=== PATIENT | female | born 1995 | race Caucasian/White ===

== ENCOUNTER 2018-08-16 20:23 | Emergency (ER) | payer OTHER ==
[2018-08-16] MEDS ORDERED: Sodium Chloride 0.9% 1,000 ML IV ONE (20:55)
[2018-08-16] MEDS ORDERED: Iohexol 240 (50 ml) PO STA (20:55)
--- NOTE | 2018-08-16 20:55 | C.PDOC ---
History Of Present Illness 22 y/o female presents to the ED complaining of epigastric pain for 3 days. Pain is described as waxing/waning, localized, dull, described as a heavy feeling. Patient states she is getting over recent URI, was coughing a lot, and initially attributed pain to the coughing. Cough has now resolved, however abdominal pain persists. No association with position. Patient also complains of nausea, no vomiting or diarrhea. Has not had BM in 2 days. LMP was 08/05. Also reports having decreased appetite, though she is drinking normally. <Shandra Chaudhari - Last Filed: 08/16/18 22:56> History Per: Patient History/Exam Limitations: no limitations Onset/Duration Of Symptoms: Waxing/Waning Current Symptoms Are (Timing): Still Present Location Of Pain/Discomfort: Epigastric Radiation Of Pain To:: None Quality Of Discomfort: Dull Associated Symptoms: Nausea, Loss Of Appetite Recent travel outside of the [place]: Yes ([place]) Abnormal Vaginal Bleeding: No Last Menstral Period: 08/05/18 <Shandra Chaudhari - Last Filed: 08/16/18 22:56> <Katelin Gibbons - Last Filed: 08/17/18 01:22> Time Seen by Provider: 08/16/18 20:54 Chief Complaint (Nursing): Abdominal Pain Past Medical History Reviewed: Historical Data, Nursing Documentation, Vital Signs Vital Signs: Last Vital Signs Temp 98.4 F 08/16/18 20:43 Pulse 76 08/16/18 20:43 Resp 20 08/16/18 20:43 BP 132/87 08/16/18 20:43 Pulse Ox 99 08/16/18 20:43 - Medical History PMH: No Chronic Diseases Surgical History: No Surg Hx Family History: States: No Known Family Hx - Social History Hx Tobacco Use: No Hx Alcohol Use: No Hx Substance Use: No - Immunization History Hx Tetanus Toxoid Vaccination: No Hx Influenza Vaccination: Yes Hx Pneumococcal Vaccination: No <Shandra Chaudhari - Last Filed: 08/16/18 22:56> Vital Signs: Last Vital Signs Temp 98.2 F 08/16/18 23:31 Pulse 70 08/16/18 23:31 Resp 20 08/16/18 23:31 BP 122/70 08/16/18 23:31 Pulse Ox 99 08/16/18 23:31 <Katelin Gibbons - Last Filed: 08/17/18 01:22> Review Of Systems Except As Marked, All Systems Reviewed And Found Negative. Constitutional: Negative for: Fever ENT: Positive for: Nose Congestion Cardiovascular: Negative for: Chest Pain Respiratory: Positive for: Cough (now resolved). Negative for: Shortness of Breath Gastrointestinal: Positive for: Nausea, Abdominal Pain (epigastric), Constipation, Other (Decreased appetite). Negative for: Vomiting, Diarrhea Genitourinary: Negative for: Dysuria, Frequency Musculoskeletal: Negative for: Back Pain Skin: Negative for: Rash Neurological: Negative for: Weakness, Numbness <Shandra Chaudhari Last Filed: 08/16/18 22:56> Physical Exam - Physical Exam Appears: Non-toxic, In Acute Distress (Moderate), Other (Crying on exam) Skin: Normal Color, Warm, Dry Head: Atraumatic, Normacephalic Eye(s): bilateral: Normal Inspection, PERRL, EOMI Oral Mucosa: Moist Neck: Normal ROM Chest: Symmetrical Cardiovascular: Rhythm Regular, No Murmur Respiratory: Normal Breath Sounds, No Rales, No Rhonchi, No Wheezing Gastrointestinal/Abdominal: Soft, Tenderness (mild tenderness in the epigastric area), No Guarding, No Rebound Back: Normal Inspection, No CVA Tenderness Extremity: Bilateral: Atraumatic, Normal Color And Temperature, Normal ROM Neurological/Psych: Oriented x3, Normal Speech <Shandra Chaudhari Filed: 08/16/18 22:56> ED Course And Treatment - Laboratory Results Result Diagrams: 08/16/18 21:08 08/16/18 21:08 Urine POC: Negative O2 Sat by Pulse Oximetry: 99 (RA) Pulse Ox Interpretation: Normal <Shandra Chaudhari Last Filed: 08/16/18 22:56> - Laboratory Results Result Diagrams: 08/16/18 21:08 08/16/18 21:08 Pulse Ox Interpretation: Normal Progress Note: patient is pain free. will return if symptoms recur <Katelin Gibbons - Last Filed: 08/17/18 01:22> Progress - Re-Evaluation Re-evaluation Note: 08/16/18 22:57 FEELS BETTER SP PEPCID. PT REFUSED MORPHINE. PENDING CT - Data Reviewed Data Reviewed: Lab, Diagnostic imaging <Shandra Chaudhari - Last Filed: 08/16/18 22:56> Medical Decision Making Medical Decision Making: Impression: Abdominal pain, Nausea Plan: --Blood work --Urinalysis --Pepcid 20 mg IV --Zofran 4 mg IV --Morphine 2 mg IV --1 L IV fluids --Awaiting CT Abd/Pelvis with IV&PO contrast <Shandra Chaudhari Last Filed: 08/16/18 22:56> Medical Decision Making: Upon provider reevaluation patient is feeling better, is medically stable, and requires no further treatment in the ED at this time. Patient will be discharged home with Rx for bentyl. Counseling was provided and all questions were answered regarding diagnosis and need for follow up withdr jade. There is agreement to discharge plan. Return if symptoms persist or worsen. <Katelin Gibbons - Last Filed: 08/17/18 01:22> Disposition Counseled Patient/Family Regarding: Studies Performed, Diagnosis - Disposition Disposition Time: 23:00 <Shandra Chaudhari Filed: 08/16/18 22:56> Counseled Patient/Family Regarding: Studies Performed, Diagnosis, Need For Followup, Rx Given <SilvinamadelineSabrinasayra - Last Filed: 08/17/18 01:22> - Disposition Referrals: Dileep Jade MD [Staff Provider] - Disposition: HOME/ ROUTINE Condition: FAIR Additional Instructions: Please return if symptoms recur Prescriptions: Dicyclomine [Dicyclomine HCl] 10 mg PO QID #20 cap Instructions: Acute Abdomen (Belly Pain), Adult (DC) Forms: [employer] ([employer]) - Clinical Impression Clinical Impression: Abdominal pain - Scribe Statement The provider has reviewed the documentation as recorded by the Valentino Lin Provider Attestation: All medical record entries made by the Nathalieibe were at my direction and personally dictated by me. I have reviewed the chart and agree that the record accurately reflects my personal performance of the history, physical exam, medical decision making, and the department course for this patient. I have also personally directed, reviewed, and agree with the discharge instructions and disposition. <WatsonShandra - Last Filed: 08/16/18 22:56> Physician Patient Turnover Patient Signed Over To: Katelin Gibbons Handoff Comments: fu ct, DISPO <WatsonShandra - Last Filed: 08/16/18 22:56>
[2018-08-16] MEDS ORDERED: Iohexol 240 (50 ml) ONE (21:12)
[2018-08-16 21:16] LABS: BASO # 0.1 K/uL (0.0-0.2); BASO % 0.8 % (0.0-2.0); EOS # 0.2 K/uL (0.0-0.7); EOS % 1.2 % (0.0-4.0); HEMOGLOBIN 11.6 g/dL (11.0-16.0); LYMPH # 1.4 K/uL (1.0-4.3); LYMPH % 11.2 % (20.0-40.0); MEAN CORPUSCULAR HEMOGLOBIN 27.9 pg (27.0-31.0); MEAN CORPUSCULAR HGB CONC 32.9 g/dL (33.0-37.0); MONO # 0.6 K/uL (0.0-0.8); MONO % 5.1 % (0.0-10.0); NEUT # 10.1 K/uL (1.8-7.0); NEUT % 81.7 % (50.0-75.0); RBC 4.15 Mil/uL (3.80-5.20); WHITE BLOOD COUNT 12.3 K/uL (4.8-10.8)
[2018-08-16 21:20] LABS: SQUAMOUS EPITHIAL < 1 /hpf (0-5); URINE BACTERIA OCC (<OCC); URINE BILIRUBIN NEGATIVE (NEGATIVE); URINE CLARITY Clear (Clear); URINE COLOR Yellow (YELLOW); URINE GLUCOSE (UA) NORMAL (Normal); URINE LEUKOCYTE ESTERASE NEG Leu/uL (Negative); URINE PROTEIN NEGATIVE (NEGATIVE); URINE UROBILINOGEN NORMAL mg/dL (0.2-1.0)
[2018-08-16 21:21] LABS: URINE BLOOD TRACE (NEGATIVE)
[2018-08-16 21:31] LABS: ALB/GLOB RATIO 1.1 (1.0-2.1); ALBUMIN 4.2 g/dL (3.5-5.0); ALT/SGPT 21 U/L (9-52); AST/SGOT 22 U/L (14-36); BLOOD UREA NITROGEN 5 mg/dL (7-17); CALCIUM 9.2 mg/dl (8.6-10.4); GFR NON-AFRICAN AMERICAN > 60; LIPASE 30 U/L (23-300)
[2018-08-17] MEDS ORDERED: Iodixanol 320 MG/ML 100 ML BOTTLE IV ONE (00:12)
[2018-08-17 01:24] VITALS: BP 107/69; PULSE 73; RESP 14; TEMP 98.1; O2SAT 100
--- NOTE | 2018-08-17 11:03 | CT ---
PROCEDURE: CT Abdomen and Pelvis with oral and IV contrast. HISTORY: abd pain COMPARISON: None available TECHNIQUE: Contiguous axial images of the abdomen and pelvis. Oral and IV contrast was administered. Coronal and Sagittal reformats generated and reviewed. Contrast dose: 100 mL Visipaque 320 IV Radiation dose: Total exam DLP = 283.44 mGy-cm. This CT exam was performed using one or more of the following dose reduction techniques: Automated exposure control, adjustment of the mA and/or kV according to patient size, and/or use of iterative reconstruction technique. FINDINGS: LOWER THORAX: No visible consolidation, pleural effusion, or pneumothorax. LIVER: Unremarkable. GALLBLADDER AND BILE DUCTS: Possible mild gallbladder wall thickening/pericholecystic edema. No evidence of calcified gallstones. PANCREAS: Unremarkable. SPLEEN: Several low-density splenic hypodense masses evident; largest at the splenic dome measures 1.8 x 2.2 cm. ADRENALS: Unremarkable. KIDNEYS AND URETERS: The kidneys enhance symmetrically. No hydronephrosis or obstructing renal calculus. BLADDER: Urinary bladder distension, otherwise unremarkable. REPRODUCTIVE: Uterus is present. APPENDIX: The appendix appears within normal limits of caliber. No secondary signs of acute appendicitis. BOWEL: The stomach is nondistended. The bowel loops appear within normal limits of caliber without evidence of intestinal obstruction. PERITONEUM: No significant free fluid. No definite free air. LYMPH NODES: No bulky lymphadenopathy identified. VASCULATURE: No aortic aneurysm. No atherosclerotic calcification or mural plaque present. BONES: No acute osseous abnormality is detected. OTHER FINDINGS: None. IMPRESSION: Possible mild pericholecystic fluid/gallbladder-wall thickening. No evidence of gallstones. Correlate clinically. Right upper quadrant ultrasound suggested if clinically indicated. Several low-density splenic hypodense masses evident; largest at the splenic dome measures 1.8 x 2.2 cm. Recommend comparison with prior outside imaging if available. Suggest further evaluation with ultrasound and/or patient MRI if indicated. Preliminary impression was provided by [employer]. Findings discussed with YOLA Prince on 08/17/18 at 1057am.
== END 2018-08-17 01:27 | disposition home or self-care (01) ==
LOC: C.ER 20:23
DX: R10.9 Unspecified abdominal pain (principal)
CPT/HCPCS: 74177; 80053; 81001; 83690; 85025; 96361; 96374; 96375; 96376; 99285; J2270; J2405; J7030; Q9966; Q9967